=== PATIENT | female | born 1940 | race Caucasian/White ===

== ENCOUNTER 2018-01-13 17:21 | Observation (INO) | payer MEDICARE, OTHER ==
[~2018-01-13] VITALS: Ht 165.1 cm; Wt 78.5 kg
[~2018-01-13 17:21] MED LIST: AMBIEN5 MG PO; AMLODIPINE BESYL5 MG PO; ATENOLOL100 MG PO; ATIVAN1 MG PO; BENTYL20 MG PO; BUDESONIDE EC3 MG PO; COLESTIPOL HCL1 GM PO; HYDROCODON-ACE1 EA11 PO; LISINOPRIL40 MG PO; MYRBETRIQ50 MG PO; OPIUM10 MG/1 ML PO; PENTASA500 MG PO; POTASSIUM CHLO20 ME1 PO; REMICADE100 MG/VIA IV; SUCRALFATE1 GM PO
--- NOTE | 2018-01-13 18:49 | Diagnostic Imaging Report ---
EXAMINATION: CHEST 2 VIEWS INDICATION: \S\SOB \[id number] \S\1821 \S.br\ COMPARISON: 12/08/2009 FINDINGS: PA and lateral views TUBES and LINES: None. LUNGS: Lungs are well inflated. Lungs are clear. There is no evidence of pneumonia or pulmonary edema. PLEURA: No pleural effusion or pneumothorax. HEART AND MEDIASTINUM: The cardiomediastinal silhouette is unremarkable. Aorta is mildly calcified and tortuous. BONES AND SOFT TISSUES: No acute osseous lesion. Soft tissues are unremarkable. UPPER ABDOMEN: No free air under the diaphragm. Mildly elevated right hemidiaphragm. IMPRESSION: No acute thoracic abnormality. Signed by: Dr. Margarito Collazo MD on 01/13/2018 6:45 PM
[2018-01-13 20:17] LABS: BASOPHILS # (AUTO) 0.1 (0.0-0.1); BASOPHILS % 0.6 % (0.0-1.0); EOSINOPHILS # (AUTO) 0.1 (0.0-0.4); EOSINOPHILS % 0.9 % (0.0-6.0); HEMATOCRIT 47.2 % (34.2-44.1); HEMOGLOBIN 15.9 g/dL (12.0-16.0); LYMPHOCYTES # (AUTO) 3.1 (1.0-3.2); LYMPHOCYTES % 19.1 % (18.0-39.1); MEAN CORPUSCULAR HEMOGLOBIN 32.4 pg (28-32); MEAN CORPUSCULAR HGB CONC 33.7 g/dL (31-35); MEAN CORPUSCULAR VOLUME 96.1 fL (81-99); MONOCYTES # (AUTO) 1.7 (0.2-0.8); MONOCYTES % 10.9 % (4.4-11.3); NEUTROPHILS # (AUTO) 10.6 (2.1-6.9); NEUTROPHILS % 66.4 % (38.7-80.0); PLATELET COUNT 256 x10e3/uL (140-360); RED BLOOD COUNT 4.91 x10e6/uL (3.6-5.1); RED CELL DISTRIBUTION WIDTH 17.6 % (11.7-14.4)
[2018-01-13 20:27] LABS: INR 1.03; PROTHROMBIN TIME 12.7 seconds (11.9-14.5)
[2018-01-13 20:28] LABS: PARTIAL THROMBOPLASTIN TIME 22.7 seconds (23.8-35.5)
[2018-01-13 20:36] LABS: ALBUMIN 3.9 g/dL (3.5-5.0); ALBUMIN/GLOBULIN RATIO 1.1 (0.8-2.0); ANION GAP 21.5 mmol/L (8-16); CALCIUM 10.1 mg/dL (8.4-10.2); CREATININE, SERUM 1.34 mg/dL (0.57-1.11); POTASSIUM 4.5 mmol/L (3.5-5.1)
[2018-01-13 20:55] LABS: CREATINE KINASE MB 2.1 ng/mL (0-5.0)
[2018-01-13 21:51] LABS: LYMPHOCYTES % (MANUAL) 13 % (19-48); MONOCYTES % (MANUAL) 7 % (3.4-9.0); NEUTROPHILS % (MANUAL) 75 % (40-74); PLATELET ESTIMATE ADEQUATE; PLATELET MORPHOLOGY COMMENT NORMAL; RBC MORPHOLOGY COMMENT NORMAL
[2018-01-13 21:52] LABS: CLARITY,URINE SL CLOUDY (CLEAR); COLOR,URINE YELLOW (YELLOW); LEUKOCYTE ESTERASE ,URINE TRACE (NEGATIVE); NITRITE,URINE POSITIVE (NEGATIVE); PROTEIN,URINE DIPSTICK 1+ (NEGATIVE)
[2018-01-13 21:53] LABS: BILIRUBIN,URINE 1+ (NEGATIVE); KETONES,URINE NEGATIVE (NEGATIVE); URINE UROBILINOGEN 0.2 mg/dL (0.2 - 1)
[2018-01-13 21:59] LABS: WBC,URINE (MAN) 0-5 /HPF (0-5)
[2018-01-13 22:00] LABS: BACTERIA,URINE MODERATE /HPF; EPITHELIAL CELLS,URINE FEW /LPF
[2018-01-13] MEDS: PIPERACILLIN/TAZO 2.25 GM 50 ML IV SCH (22:12)
[2018-01-13] MEDS ORDERED: ONDANSETRON HCL INJ 2 MG/ML VIAL IV PRN (22:30)
[2018-01-13] MEDS ORDERED: ALLOPURINOL300 MG PO (22:57)
[2018-01-13] MEDS ORDERED: METHOTREXATE2.5 MG PO (22:58)
[2018-01-13] MEDS ORDERED: OMEPRAZOLE20 MG PO (23:00)
[2018-01-13] MEDS ORDERED: CELEBREX50 MG PO (23:01)
[2018-01-13] MEDS ORDERED: HYDROCHLOROTHIA25 MG PO (23:02)
[2018-01-13] MEDS ORDERED: NORCO 10-325 T1 EACH PO (23:03)
[2018-01-13] MEDS: FAMOTIDINE 20 MG/2 ML VIAL IV SCH (23:20)
[2018-01-14] VITALS (9 sets, daily range): BP systolic 116–150; BP diastolic 69–85
[2018-01-14 05:32] LABS: BASOPHILS % 0.3 % (0.0-1.0); EOSINOPHILS # (AUTO) 0.2 (0.0-0.4); EOSINOPHILS % 1.3 % (0.0-6.0); HEMATOCRIT 41.6 % (34.2-44.1); HEMOGLOBIN 13.9 g/dL (12.0-16.0); LYMPHOCYTES % 17.1 % (18.0-39.1); MEAN CORPUSCULAR HEMOGLOBIN 31.7 pg (28-32); MEAN CORPUSCULAR HGB CONC 33.4 g/dL (31-35); MONOCYTES # (AUTO) 1.3 (0.2-0.8); MONOCYTES % 10.7 % (4.4-11.3); NEUTROPHILS # (AUTO) 8.1 (2.1-6.9); NEUTROPHILS % 68.9 % (38.7-80.0); PLATELET COUNT 202 x10e3/uL (140-360); RED BLOOD COUNT 4.38 x10e6/uL (3.6-5.1); RED CELL DISTRIBUTION WIDTH 17.1 % (11.7-14.4)
[2018-01-14] MEDS ORDERED: SODIUM CHLORIDE 0.9% 250ML 250 ML ONE (05:42)
[2018-01-14] MEDS: PIPERACILLIN/TAZO 2.25 GM 50 ML IV SCH ×3 (05:55→21:19)
[2018-01-14 06:03] LABS: ALANINE AMINOTRANSFERASE 36 IU/L (0-55); ALBUMIN 3.1 g/dL (3.5-5.0); ALBUMIN/GLOBULIN RATIO 0.9 (0.8-2.0); ALKALINE PHOSPHATASE 56 IU/L (40-150); ANION GAP 18.3 mmol/L (8-16); BLOOD UREA NITROGEN 35 mg/dL (7-26); BUN/CREATININE RATIO 39 (6-25); CALCIUM 9.4 mg/dL (8.4-10.2); CARBON DIOXIDE 26 mmol/L (22-29); CHLORIDE 94 mmol/L (98-107); CHOL/HDL RATIO 3.8 (3.0-3.6); CHOLESTEROL 156 MD/DL (0-199); CREATINE KINASE 41 IU/L (29-168); EST GLOMERULAR FILTRATION RATE > 60 ML/MIN (60-); GLUCOSE 118 mg/dL (74-118); HDL CHOLESTEROL 41 MG/DL (40-60); LDL CHOLESTEROL 65 MG/DL (60-130); POTASSIUM 3.3 mmol/L (3.5-5.1); SODIUM 135 mmol/L (136-145); TRIGLYCERIDES 250 MG/DL (0-149)
[2018-01-14] MEDS: ASPIRIN 81 MG ENTERIC COATED PO SCH (08:19)
[2018-01-14] MEDS ORDERED: METHOTREXATE SOD 2.5 MG TAB PO SCH (09:15)
[2018-01-14] MEDS ORDERED: INFLIXIMAB 100 MG IV SCH (09:15)
[2018-01-14] MEDS: HYDROCODONE/APAP 10MG-325MG TAB PO PRN (10:14)
[2018-01-14] MEDS: FAMOTIDINE 20 MG/2 ML VIAL IV SCH ×2 (10:14→21:19)
[2018-01-14] MEDS: POTASSIUM CHLORIDE 20 MEQ TAB CR PO SCH (10:14)
[2018-01-14] MEDS: MESALAMINE 500 MG CAPCR PO SCH ×3 (13:10→20:45)
[2018-01-14 14:32] LABS: CREATINE KINASE MB 1.2 ng/mL (0-5.0)
[2018-01-14] MEDS ORDERED: ALBUTEROL/IPRATROPIUM 3 ML NEB NEB PRN (17:15)
[2018-01-14] MEDS: ALLOPURINOL 300 MG TAB PO SCH (17:59)
[2018-01-14] MEDS: ZOLPIDEM TARTRATE 10 MG TAB PO SCH (20:45)
[2018-01-14] MEDS: LORAZEPAM 1 MG TAB PO SCH (20:45)
[2018-01-14] MEDS ORDERED: ZOLPIDEM TARTRATE 5 MG TAB PO SCH (21:00)
[2018-01-15] VITALS (7 sets, daily range): BP systolic 134–178; BP diastolic 70–94
[2018-01-15] MEDS: PIPERACILLIN/TAZO 2.25 GM 50 ML IV SCH ×3 (05:38→21:20)
[2018-01-15] MEDS ORDERED: CELECOXIB 100 MG PO SCH (09:00)
[2018-01-15] MEDS ORDERED: PANTOPRAZOLE SOD 40 MG TABEC PO SCH (09:00)
[2018-01-15] MEDS ORDERED: POTASSIUM CHLORIDE 20 MEQ TAB CR PO SCH ×2 (09:00)
[2018-01-15] MEDS: CELECOXIB 100 MG CAP PO SCH (09:38)
[2018-01-15] MEDS: HYDROCHLOROTHIAZIDE 25 MG TAB PO SCH (09:38)
[2018-01-15] MEDS: ASPIRIN 81 MG ENTERIC COATED PO SCH (09:38)
[2018-01-15] MEDS: BUDESONIDE 3 MG CAPCR PO SCH (09:38)
[2018-01-15] MEDS: AMLODIPINE BESYLATE 5 MG TAB PO SCH (09:39)
[2018-01-15] MEDS: ATENOLOL 100 MG TAB PO SCH (09:39)
[2018-01-15] MEDS: POTASSIUM CHLORIDE 20 MEQ TAB CR PO SCH (09:39)
[2018-01-15] MEDS: HYDROCODONE/APAP 10MG-325MG TAB PO PRN ×4 (09:39→22:38)
[2018-01-15] MEDS: ALLOPURINOL 300 MG TAB PO SCH ×2 (09:39→17:58)
[2018-01-15] MEDS: MESALAMINE 500 MG CAPCR PO SCH ×4 (09:39→20:45)
[2018-01-15] MEDS: PANTOPRAZOLE SOD 40 MG TABEC PO SCH (09:39)
[2018-01-15] MEDS: FAMOTIDINE 20 MG/2 ML VIAL IV SCH ×2 (12:50→22:30)
--- NOTE | 2018-01-15 13:12 | Consultation ---
DATE OF CONSULTATION: January 15, 2018 CARDIOLOGY CONSULTATION NOTE ATTENDING PHYSICIAN: Dr. Dot Sanchez. Thank you so much for asking me to see this nice lady again in consultation. Ms. Epstein is a pleasant 77-year-old woman physiologically older than her stated age who presented to the emergency room, referred from doctor's office with shortness of breath and "abnormal EKG." HISTORY OF PRESENT ILLNESS: Patient reports that she stopped her hydrochlorothiazide about a month ago because she was feeling weak and had noted some higher blood pressure readings more recently. PAST MEDICAL HISTORY: Complex with previous diagnosis of lupus and also Crohn's disease and longstanding hypertension. She was treated with IV antibiotics in 2014 for a finger cellulitis and also hospitalized at [facility] in October 2013 for lower GI bleeding. PAST SURGICAL HISTORY: Remote hysterectomy and cholecystectomy. She had a hip replacement at age 58. Colon surgery with partial colectomy, colostomy and reversal on 2009. CURRENT HOME MEDICATIONS: Include 1. Atenolol 100 mg daily. 2. Folic acid 1 mg daily. 3. Potassium 20 mEq daily. 4. Methotrexate 2.5 mg 10 tablets once a week. 5. Lorazepam 1 mg daily. 6. Budesonide 3 mg tablet daily. 7. Pentasa 500 mg 2 tabs 4 time a day. 8. Remicade 100 mg intravenously over 4 weeks. 9. Amlodipine 10 mg daily. 10. Omeprazole 20 mg daily. 11. Ambien q.h.s. 12. Celebrex p.r.n. 13. Lomotil p.r.n. 14. Hydrochlorothiazide 50 mg stopped as above. 15. Allopurinol 300 mg daily. 16. Bentyl 4 times a day. PHYSICAL EXAMINATION GENERAL: At this time shows a pleasant, alert, and obese woman who is alert, responsive, and comfortable. VITAL SIGNS: Blood pressure 130/80. HEENT: Unremarkable. NECK: No jugular venous distention. THORAX: Heart sounds S1 and S2 are equal. No murmurs. LUNGS: Clear. ABDOMEN: Markedly protuberant. EXTREMITIES: No cyanosis, clubbing or edema. LABORATORY STUDIES: EKG shows sinus rhythm with intraventricular conduction delay. Early report of the echocardiogram shows normal left ventricular function. EF about 60% with left ventricular hypertrophy. Troponins are negative x3. Initial white cell count 15.9, improved to 11.8. ASSESSMENT 1. Hypertension. 2. Systemic lupus erythematosus. 3. Crohn's disease. PLAN: Agree with medical management. I believe her cardiovascular status is clinically stable. Thank you for asking me to see her in consultation. Job#: [id number] ANA cc:DR. BROWER
[2018-01-15] MEDS: ZOLPIDEM TARTRATE 10 MG TAB PO SCH (20:44)
[2018-01-15] MEDS: LORAZEPAM 1 MG TAB PO SCH (20:44)
[2018-01-16] VITALS: BP 173/73
[2018-01-16 04:00] VITALS: BP 135/77
[2018-01-16] MEDS: PIPERACILLIN/TAZO 2.25 GM 50 ML IV SCH (05:14)
[2018-01-16 07:45] VITALS: BP 174/84
[2018-01-16 07:52] VITALS: BP 174/84
[2018-01-16] MEDS: ALLOPURINOL 300 MG TAB PO SCH (08:24)
[2018-01-16] MEDS: BUDESONIDE 3 MG CAPCR PO SCH (08:24)
[2018-01-16] MEDS: PANTOPRAZOLE SOD 40 MG TABEC PO SCH (08:24)
[2018-01-16] MEDS: MESALAMINE 500 MG CAPCR PO SCH (08:24)
[2018-01-16] MEDS: HYDROCHLOROTHIAZIDE 25 MG TAB PO SCH (08:24)
[2018-01-16] MEDS: AMLODIPINE BESYLATE 5 MG TAB PO SCH (08:24)
[2018-01-16] MEDS: ASPIRIN 81 MG ENTERIC COATED PO SCH (08:24)
[2018-01-16] MEDS: ATENOLOL 100 MG TAB PO SCH (08:24)
[2018-01-16] MEDS: POTASSIUM CHLORIDE 20 MEQ TAB CR PO SCH (08:24)
[2018-01-16] MEDS: CELECOXIB 100 MG CAP PO SCH (08:24)
[2018-01-16] MEDS ORDERED: HYDROCHLOROTHIA25 MG PO (11:34)
[2018-01-16] MEDS ORDERED: AZITHROMYCIN250 MG PO (11:38)
[2018-01-17] MEDS ORDERED: METHOTREXATE SOD 2.5 MG TAB PO SCH (09:00)
[2018-02-13] MEDS ORDERED: INFLIXIMAB 100 MG IV SCH (09:30)
== END 2018-01-16 11:49 | disposition home or self-care (01) ==
LOC: ER 17:21 → ERHOLD 22:38 → MED/SURG3 23:43
DX: J20.9 Acute bronchitis, unspecified (principal); M32.9 Systemic lupus erythematosus, unspecified; K50.90 Crohn's disease, unspecified, without complications; Z96.649 Presence of unspecified artificial hip joint; E78.5 Hyperlipidemia, unspecified; I12.9 Hypertensive chronic kidney disease with stage 1 through stage 4 chronic kidney disease, or unspecified chronic kidney disease; N18.3 Chronic kidney disease, stage 3 (moderate); Z79.899 Other long term (current) drug therapy
CPT/HCPCS: 36415 ×2; 71046; 80053 ×2; 80061; 81001; 82550 ×2; 82553 ×2; 83605; 83735; 83880; 84484 ×2; 85025 ×2; 85379; 85610; 85730; 87040; 87086; 93005; 93306; 99284; G0378 ×4; J2405; J2543 ×4; J7050; S0164 ×2